=== PATIENT | female | born 1965 | race Asian ===

== ENCOUNTER → 2023-11-14 08:03 | Outpatient (CLI) | payer OTHER, MEDICAID, SELFPAY ==
--- NOTE | 2023-11-14 | DI.MG.S_ITS ---
BILATERAL DIGITAL SCREENING MAMMOGRAM 3D/2D WITH CAD WITH AUGMENTATION: 11/14/2023 CLINICAL: Baseline exam. Routine screening. No prior exams were available for comparison. Both breasts are heterogeneously dense, which may obscure small masses (category c / 51-75% glandular tissue). Current study was also evaluated with a Computer Aided Detection (CAD) system. Bilateral breast implants are intact. No significant masses, calcifications, or other findings are seen in either breast. IMPRESSION: BENIGN There is no mammographic evidence of malignancy. A 1 year screening mammogram is recommended. Based on the Tyrer Cuzick model (a risk assessment model) the patient's lifetime risk is 8.3% and her 10 year risk is 3.3%. According to the ACR, ACS, and NCCN guidelines, an annual breast MRI exam along with mammogram is recommended if the patient's lifetime risk is 20% or greater. This exam was interpreted at Station ID: [id number]. NOTE: For mammograms, a report in lay terms will be sent to the patient. Approximately 15% of breast malignancies will not be visualized mammographically. In the management of a palpable breast mass, a negative mammogram must not discourage biopsy of a clinically suspicious lesion. Electronically Signed By: Vivian Romo M.D., PH.D eb/penrad:11/14/2023 11:50:53 letter sent: Normal Exam ACR BI-RADS Category 2: Benign Finding(s) 3342F
--- NOTE | 2023-11-14 08:05 | DI.CT.S_ITS ---
PROCEDURE: CT LUNG LOW DOSE SCREENING INDICATIONS: tobacco use TECHNIQUE: Noncontrast 2.0-2.5 mm thick sections acquired from the pulmonary apices to the posterior costophrenic angles. 7 mm thick axial MIP, and 5 mm coronal and sagittal reformats were then acquired. For radiation dose reduction, the following was used: automated exposure control, adjustment of mA and/or kV according to patient size. COMPARISON: None. FINDINGS: Image quality: Diagnostic. Lower Neck: No enlarged lymph nodes. Thyroid: No thyroid nodules which require sonographic follow up, per consensus guidelines. Axillae: No enlarged lymph nodes. Chest Wall: Bilateral breast implants. Bones: No acute fractures. No aggressive appearing lytic or blastic osseous lesions. Lungs and Pleura: No pneumothorax or pleural effusions. No suspicious solid pulmonary nodule or consolidation. Bilateral subtle lower lobe centrilobular ground-glass nodules measuring 2-3 mm. (for example, , 215, 221, 224, 229). Heart: Heart size is normal. No pericardial effusion. No coronary vessel calcifications. Thoracic Vessels: The aorta and pulmonary arteries demonstrate normal size. Mediastinum and Temi: No enlarged lymph nodes. Esophagus: No wall thickening. No hiatal hernia. Upper Abdomen: Visualized upper abdomen solid organs and bowel loops appear normal. IMPRESSION: No suspicious pulmonary nodules. Bilateral subtle lower lobe centrilobular ground-glass nodules measuring 2-3 mm which may represent bronchiolitis of inflammatory etiology. LUNG-RADS 2; continued annual screening, if eligible. Dictated by: Mickie Wilcox M.D. on 11/14/2023 at 9:42 Approved by: Mickie Wilcox M.D. on 11/14/2023 at 10:02
== END ==
LOC: MAMMO 08:05
PROVIDERS: PCP Family Medicine; Referring Provider Family Medicine; Visit Provider Family Medicine
DX: Z12.31 Encounter for screening mammogram for malignant neoplasm of breast (principal); R92.333 Mammographic heterogeneous density, bilateral breasts; Z12.2 Encounter for screening for malignant neoplasm of respiratory organs; Z72.0 Tobacco use
CPT/HCPCS: 71271; 77063; 77067

== ENCOUNTER 2023-12-16 12:08 | Day surgery (SDC) | payer OTHER, MEDICAID, SELFPAY ==
[2023-12-16 12:47] VITALS: BP 115/65; PULSE 78; RESP 14; TEMP 37.1; O2SAT 97
[2023-12-16] MEDS: LACTATED RINGERS 1,000 ML 42 ML IV (13:00)
--- NOTE | 2023-12-16 13:57 | PM.PREOP ---
Pre-operative Note COVID-19 COVID-19 status: Not tested Interval Note History & Physical reviewed/Exam performed by Physician: Yes Changes to H&P: No ASA Class (for procedural sedation): II
[2023-12-16 15:04] VITALS: BP 83/44; PULSE 84; RESP 21; TEMP 36.4; O2SAT 99
[2023-12-16 15:08] VITALS: BP 93/47; PULSE 83; RESP 22; O2SAT 99
[2023-12-16 15:11] VITALS: BP 93/47; PULSE 81; RESP 12; TEMP 36.5; O2SAT 98
--- NOTE | 2023-12-16 15:11 | PM.OP.EC ---
Operative Date/Time/Diagnoses Date of procedure: 12/16/23 Time of procedure: 15:11 Pre-op diagnosis: Dysphagia and colon cancer screening Post-op diagnosis: same Procedure & Clinicians Study performed: EGD and colonoscopy Same procedure as scheduled: Yes Surgeon: Rosas Velazquez Procedure Notes Procedure in detail: Surgeon: Rosas Velazquez MD Anesthesia: Halley Trinidad CRNA Procedure in detail: A timeout was performed. A bite blocked was placed and monitors were attached to the patient. The patient was positioned in the left lateral decubitus position. Sedation was administered. Once the patient was sedated the endoscope was inserted through the bite block and passed through the esophagus and stomach and into the duodenum. No abnormalities were found. We then withdrew the scope into the stomach. No abnormalities were seen. The endoscope was retroflexed and a small hiatal hernia was noted. The endoscope was straightned and withdrawn into the esophagus. No further abnormalities were seen. EGD findings: Normal EGD Next we repositioned the patient for a colonoscopy. A digital rectal exam was performed and was normal. The colonoscope was inserted and advanced to the cecum. The appendiceal orifice was identified and photographed. The scope was slowly withdrawn over greater than 6 minutes. No abnormalities were found. The scope was retroflexed in the rectum and no other abnormalities were seen. Colonoscopy findings: Normal colonoscopy Total procedural EBL: 0 Scope withdrawal time: 7 minutes Sedation minutes: 17 minutes Post-procedure Recommendations: Colonscopy in 10 years Disposition: PACU
[2023-12-16 15:21] VITALS: BP 107/65; PULSE 81; RESP 16; O2SAT 99
== END 2023-12-16 15:35 | disposition home or self-care (01) ==
PROVIDERS: PCP Family Medicine; Referring Provider Surgery; Visit Provider Surgery
PROC: 0DJ08ZZ Inspection of Upper Intestinal Tract, Via Natural or Artificial Opening Endoscopic (ICD-10-PCS; CPT 43235; principal; 2023-12-16 13:00)
PROC: 0DJD8ZZ Inspection of Lower Intestinal Tract, Via Natural or Artificial Opening Endoscopic (ICD-10-PCS; CPT 45378; 2023-12-16 13:00)
DX: Z12.11 Encounter for screening for malignant neoplasm of colon (principal); R13.10 Dysphagia, unspecified; K44.9 Diaphragmatic hernia without obstruction or gangrene
CPT/HCPCS: 45378; 43235; J2704

== ENCOUNTER → 2024-03-11 14:58 | Outpatient (CLI) | payer OTHER, MEDICAID, SELFPAY ==
[2024-03-11 15:37] LABS: Add Manual Diff / Slide Review NO; Basophils Absolute Auto 0 /uL (0-100); Basophils Percent Auto 0.2 % (0-2); Eosinophils Absolute Auto 100 /uL (0-450); Eosinophils Percent Auto 1.6 % (2-4); Hematocrit 43.1 % (36-46); Hemoglobin 14.5 g/dL (12.0-16.0); Lymphocytes Absolute Auto 2200 /uL (1100-4500); Mean Corpuscular HGB Conc 33.7 % (30-36); Mean Corpuscular Hemoglobin 28.5 PG (26-34); Mean Corpuscular Volume 84.6 fL (80-100); Monocytes Absolute Auto 600 /uL (0-900); Monocytes Percent Auto 7.7 % (3-14); Neutrophils Absolute Auto 4700 /uL (1500-7000); Neutrophils Percent Auto 61.5 % (50-75); Platelet Count 240 X10^3/uL (150-400); Red Cell Distribution Width 12.9 % (11.6-14.8); White Blood Cell Count 7.7 X10^3/uL (4.5-11.0)
[2024-03-11 16:20] LABS: HEMOLYSIS < 15 (0-50); Iron 72 ug/dL (37-170)
[2024-03-11 16:22] LABS: Alanine Aminotransferase 20 IU/L (<35); Albumin 4.2 g/dL (3.5-5.0); Albumin Globulin Ratio 1.6 (1.0-2.8); Alkaline Phosphatase 142 U/L (38-126); Aspartate Aminotransferase 22 IU/L (14-36); Bilirubin Total 0.4 mg/dL (0.2-1.3); Blood Urea Nitrogen 20 mg/dL (7-17); Calcium 9.8 mg/dL (8.4-10.2); Carbon Dioxide 32 mmol/L (22-32); Chloride 107 mmol/L (98-107); Cholesterol 167 mg/dL (140-199); Estimated Glomerular Filt Rate > 60 mL/min (>60); Globulin 2.7 g/dL (1.7-4.1); Glucose 102 mg/dL (80-110); HDL Cholesterol 46 mg/dL (40-60); HEMOLYSIS 17 (0-50); Magnesium 2.2 mg/dL (1.6-2.3); Potassium 4.5 mmol/L (3.4-5.1); Sodium 142 mmol/L (137-145); Total Protein 6.9 g/dL (6.3-8.2); Triglycerides 424 mg/dL (35-150)
[2024-03-11 16:30] LABS: Percent Iron Saturation 26 % (15-50); Total Iron Binding Capacity 275 ug/dL (265-497); Transferrin 231 mg/dL (206-381)
[2024-03-11 17:10] LABS: Vitamin B12 263 pg/mL (239-931)
== END ==
PROVIDERS: PCP Family Medicine; Referring Provider Family Medicine; Visit Provider Family Medicine
DX: Z00.00 Encounter for general adult medical examination without abnormal findings (principal); Z13.220 Encounter for screening for lipoid disorders; R13.19 Other dysphagia; G47.9 Sleep disorder, unspecified; K21.9 Gastro-esophageal reflux disease without esophagitis; R25.2 Cramp and spasm; Z72.0 Tobacco use
CPT/HCPCS: 36415; 80053; 80061; 82607; 83540; 83550; 83735; 85025

== ENCOUNTER → 2024-05-16 09:07 | Outpatient (CLI) | payer OTHER, MEDICAID, SELFPAY ==
[2024-05-16 12:02] LABS: Cholesterol 170 mg/dL (140-199); HDL Cholesterol 49 mg/dL (40-60); LDL Cholesterol Calculated 91 mg/dL (<100); Triglycerides 149 mg/dL (35-150)
== END ==
LOC: LAB 09:08
PROVIDERS: PCP Family Medicine; Referring Provider Family Medicine; Visit Provider Family Medicine
DX: Z13.220 Encounter for screening for lipoid disorders (principal)
CPT/HCPCS: 36415; 80061